=== PATIENT | female | born 1995 | race Caucasian/White ===

== ENCOUNTER 2018-01-15 10:30 | Emergency (ER) | payer OTHER, SELFPAY ==
[2018-01-15 10:39] VITALS: BMI 20.9
[2018-01-15 10:40] VITALS: BP 134/76; PULSE 84; RESP 14; O2SAT 100
--- NOTE | 2018-01-15 10:47 | DI.RAD.S_ITS ---
PROCEDURE: XR HIP W PEL IF DONE LT 2V INDICATIONS: 22 year-old female with left hip pain, without known trauma. TECHNIQUE: AP pelvis with lateral view(s) of the left hip(s). COMPARISON: None. FINDINGS: Bones: No fractures or dislocations. Pelvic ring appears intact. No developmental hip dysplasia. No suspicious bony lesions. Soft tissues: The visualized bowel gas pattern is normal. No suspicious soft tissue calcifications. IMPRESSION: No imaging explanation for left hip pain. Dictated by: Lucien Montemayor M.D. on 01/15/2018 at 11:18 Approved by: Lucien Montemayor M.D. on 01/15/2018 at 11:20
--- NOTE | 2018-01-15 11:30 | ED.LOWEXIN ---
HPI - Extremity Injury (Lower) General Chief Complaint: Extremity Injury, Lower Stated Complaint: DISLOCATED LEFT HIP Time Seen by Provider: 01/15/18 11:30 Source: patient Limitations: no limitations History of Present Illness HPI Narrative: Patient is a 22-year-old female who presents with left hip pain. She denies any injury. He says it is up chronically popping. 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 She has been trying to put heat on it without any relief. She has not taken anything for pain. She feels like it is locking out. She denies any numbness or tingling. No back pain Related Data Allergies Allergy/AdvReac Type Severity Reaction Status Date / Time No Known Drug Allergies Allergy Verified 01/15/18 10:38 Review of Systems Review of Systems All systems reviewed & are unremarkable except as noted in HPI and below Constitutional Denies chills, Denies fever(s), Denies lethargy and Denies weakness Cardiovascular Denies chest pain, Denies irregular heart rhythm, Denies lightheadedness, Denies palpitations, Denies dyspnea, Denies dyspnea on exertion and Denies orthopnea Respiratory Denies cough, Denies dyspnea, Denies dyspnea on exertion and Denies wheezing Gastrointestinal Gastrointestinal: Denies abdominal pain, Denies change in bowel habits, Denies diarrhea, Denies nausea and Denies vomiting Musculoskeletal Reports system reviewed and no additional complaints, except as docu Integumentary/Breasts Denies pruritus, Denies erythema, Denies rash and Denies wounds Neurologic Denies confusion, Denies focal weakness and Denies weakness Psychiatric Denies confusion Endocrine Denies palpitations Allergic/Immunologic Denies wheezing PFSH Social History Smoking Status: Never smoker alcohol intake: never substance use type: does not use Exam Initial Vital Signs Initial Vital Signs: Vital Signs Pulse Rate 84 01/15/18 10:40 Respiratory Rate 14 01/15/18 10:40 Blood Pressure 134/76 H 01/15/18 10:40 Pulse Oximetry 100 01/15/18 10:40 GENERAL: Well-appearing, well-nourished and in no acute distress. HEENT: Head atraumatic,EOMI, pupils reactive CARDIOVASCULAR: Regular rate and rhythm without murmurs, rubs or gallops. RESPIRATORY: Breath sounds equal bilaterally, no wheezes rales or rhonchi. ABDOMEN: Soft, nontender. Normoactive bowel sounds all 4 quadrants. No guarding or rebound. EXTREMITIES: Normal range of motion, no clubbing or edema. Neurovascularly intact -left hip tender to touch no erythema no swelling legs is equaling distal pedal pulse is intact of pain with any movement NEUROLOGICAL: Alert and oriented x4.Normal gait and speech. Cranial nerves II through XII grossly intact. SKIN: Warm, dry, no laceration, no petechiae, no rashes or lesions. Course Orders Ordered: ED Orders 01/15/18 10:47 XR hip w pel if done LT 2V Stat Discontinued Medications Ketorolac Tromethamine (Toradol) 60 mg IM NOW ONE Stop: 01/15/18 11:42 Last Admin: 01/15/18 11:49 Dose: 60 mg Vital Signs - 8 hr 01/15/18 10:40 01/15/18 11:49 Pulse Rate 84 106 H Respiratory Rate 14 14 Blood Pressure [Right Arm] 134/76 H 140/82 H Pulse Oximetry 100 100 [facility] - Extremity Injury (Lower) Differential Diagnosis Likely other (Others considered: Bursitis, Avascular necrosis, osteomyelitis, septic joint) Imaging Data right hip: Radiologist's impression: PROCEDURE: XR HIP W PEL IF DONE LT 2V INDICATIONS: 22 year-old female with left hip pain, without known trauma. TECHNIQUE: AP pelvis with lateral view(s) of the left hip(s). COMPARISON: None. FINDINGS: Bones: No fractures or dislocations. Pelvic ring appears intact. No developmental hip dysplasia. No suspicious bony lesions. Soft tissues: The visualized bowel gas pattern is normal. No suspicious soft tissue calcifications. IMPRESSION: No imaging explanation for left hip pain. Dictated by: Lucien Montemayor M.D. on 01/15/2018 at 11:18 MDM Narrative Medical decision making narrative: The patient is young without any cor morbidities. I do not suspect her avascular necrosis. X-ray is negative. More likely bursitis however we did discuss if pain should worsen or continue she may require an MRI and blood work. Discharge Plan Departure Patient Disposition: Home, Self-Care Clinical Impression: Bursitis Discharge Date/Time: 01/15/18 12:28 Interventions: ED Discharge Assessment Last Done: 01/15/18 12:26 Instructions: Bursitis Activity Restrictions/Additional Instructions: *You have been diagnosed with bursitis *What to do: Recommend icing 20 min at a time, treated with anti-inflammatories. If this is still causing problems in 1-2 weeks or if you are having increasing problems, then may require further evaluation such as MRI and/or blood work. *Continue to take medications as directed *Follow up with your primary care provider in 2-3 days *Return to ER if you should have persistent worsening or ongoing symptoms, fever more than 100.4 or any new, worsening or concerning symptoms
[2018-01-15 11:49] VITALS: BP 140/82; PULSE 106; RESP 14; O2SAT 100
[2018-01-15] MEDS: KETOROLAC 60 MG/2 ML VIAL IM (11:49)
== END 2018-01-15 12:28 | disposition home or self-care (01) ==
PROVIDERS: Emergency Provider Emergency Medicine
DX: M70.72 Other bursitis of hip, left hip (principal)
CPT/HCPCS: 73502; 81025; 96372; 99282; 99284; J1885

== ENCOUNTER 2023-03-27 02:28 | Inpatient (IN) | payer OTHER, SELFPAY ==
--- NOTE | 2023-03-27 03:21 | P.HPOB_ITS ---
OB HPI Date/Time Date of admission: 03/27/23 Date Patient Seen: 03/27/23 Time Patient Seen: 03:00 History of Present Condition Chief complaint: OB : 3 Para: 0 Estimated Date of Delivery: 03/25/23 Estimated Gestational Age (weeks): 40w2d Narrative: Marina Brownlee is a 27 year old female at 40w2d by LMP confirmed by 10 week ultrasound. She has had a normal including normal labs and tested GBS negative. Marina called at 2115 on 03/26/23 to report possible ROM with clear fluid. Contractions had been mild for about 1-2 hours prior to ROM, then quickly ramped up to every 5 minutes by 2230. Called requesting to come to hospital at 0130 because contractions were every 3 min lasting about 90 seconds and quite intense. Still leaking clear fluid and arrived wearing a pad. She is accompanied by her , Addy. They are excited and nervous to meet their baby girl. Marina is hoping for an unmedicated . History of Present care: good care, initiated at week # (10), number of visits (11) and pounds weight gain (40) Ultrasounds: normal 1st trimester US and normal mid trimester US Obstetrical complications: none Medical complications: none Preadmission Labs Blood type: AB (+) positive -: Antibody screen: negative, Cystic fibrosis screen: negative, GBS status: neg ative, HBsAG: negative, HIV: negative, HSV 1: unknown, HSV 2: unknown and RPR/VDLR: negative -: Chlamydia screen: not detected and Gonorrhea screen: not detected -: Rubella: immune and Varicella: immune HCT: 37.4 (27 weeks) HCAB: negative Quad screen: Normal (MsAFP) Cell-free DNA: Negative, XX Urine: No growth 1 hr GTT: 115 Prior (ies) History: SAB x 2, 2018 and 2021 Evaluation Evaluation Baseline heart rate: 145 Variability: Moderate (11-25) monitor accelerations: Present Monitor Decelerations: Absent Contraction Frequency (minutes): 3 Uterine Contraction Intensity: Strong/Firm Status: Category l Dilation (cm): 4 Effacement (%): 95 Dilation: 3-4 cm Effacement: >/=80% station: -1 Position of cervix: mid Consistency: soft Vargas score: 10 Comments: No amniotic sac noted on exam. Rupture confirmed. PFSH Medical History Anxiety Family History Father Hypertension Grandmother Stroke Other Depression Twins, both liveborn Social History do you feel safe at home: Yes Smoking Status: Never smoker alcohol intake: never substance use type: does not use during the past year weight has: remained stable well-balanced diet: daily or most days daily servings fruits/ve or more times/day Comment: Vegetarian diet Meds Home Medications and Allergies Home Medications Medication Instructions Recorded Confirmed Type See Rx Instructions .Route .COMPLEX 03/27/23 03/27/23 History Allergies Allergy/AdvReac Type Severity Reaction Status Date / Time No Known Drug Allergies Allergy Verified 03/27/23 07:29 Review of Systems Review of Systems Narrative: Negative except as noted in HPI OB Exam Vital signs Blood Pressure: 143/84 (repeat 139/88 then 124/66) Pulse Rate: 77 Respiratory Rate: 18 Temperature: 37.2 F Presentation: vertex Estimated Weight (lbs): 8 Amniotic Fluid: clear Objective Labs 03/27/23 03:30 Assessment and Plan Assessment and Plan Assessment and Plan narrative: at 40weeks 2 days by LMP GBS neg Rh positive FHR Cat 1 Admit to L&D Saline lock Admission labs Intermittent monitoring Anticipate NSVB
[2023-03-27 03:43] LABS: Add Manual Diff / Slide Review NO; Basophils Absolute Auto 0 /uL (0-100); Basophils Percent Auto 0.1 % (0-2); Eosinophils Absolute Auto 100 /uL (0-450); Eosinophils Percent Auto 0.4 % (2-4); Hematocrit 36.8 % (36-46); Hemoglobin 12.7 g/dL (12.0-16.0); Lymphocytes Absolute Auto 900 /uL (1100-4500); Lymphocytes Percent Auto 4.5 % (25-40); Mean Corpuscular HGB Conc 34.5 % (30-36); Mean Corpuscular Hemoglobin 28.7 PG (26-34); Mean Corpuscular Volume 83.1 fL (80-100); Monocytes Absolute Auto 800 /uL (0-900); Monocytes Percent Auto 4.2 % (3-14); Neutrophils Absolute Auto 18300 /uL (1500-7000); Neutrophils Percent Auto 90.8 % (50-75); Platelet Count 150 X10^3/uL (150-400); Red Blood Cell Count 4.43 X10^6/uL (4.0-5.2); Red Cell Distribution Width 12.9 % (11.6-14.8); White Blood Cell Count 20.1 X10^3/uL (4.5-11.0)
[2023-03-27 03:44] VITALS: BP 143/84; PULSE 77; RESP 18; TEMP 2.9; TEMP 37.2
[2023-03-27 04:04] VITALS: BP 125/66
[2023-03-27] MEDS: LIDOCAINE 1% 20 ML INJ (11:30)
[2023-03-27] MEDS: METHYLERGONOVINE 0.2 MG/ML VIAL IM (11:40)
[2023-03-27] MEDS: OXYTOCIN PREMIX 30 UNIT/500 ML PLAST..BAG 200 UNIT IV (11:42)
[2023-03-27] MEDS: LACTATED RINGERS 1,000 ML 100 ML IV ×2 (11:46→16:05)
--- NOTE | 2023-03-27 12:43 | PM.OBPRVD ---
Labor & Delivery Delivery date: 03/27/23 Delivery monitor: external FHT (Intermittent Auscultation ) Route of delivery: Episiotomy description: None L&D Laceration Description: Perineal - 2nd Degree Delivery repair: vicryl Quantitative Blood Loss: 516 Anesthesia Type: None Narrative: Marina SROMed at 2115 while in early labor at home, fluid clear. Admitted at 0300; engineer and geologist present for labor support continuously from 0600 until delivery. Labor progressed well and she felt the spontaneous urge to push at 0900 and pushed effectively for an average 2nd stage. FHR was reassuring by IA throughout labor and 2nd stage. NSVB of baby at 1058 with Marina standing at the side of the bed. Shoulders delivered easily and SNM and FOB received the baby and passed her forward through Marina's legs. Terminal meconium noted. Apgars 6/7/9. Baby remained skin to skin Marina with RN and CNM at bedside drying and stimulating baby due to slow color transition and increased work of breathing. 3 vessel cord clamped and cut by FOB at 5 minutes of life after cord pulsing had stopped. Cord blood collected for blood typing. [place] was brought to the warmer at 5 min of life for pulse ox monitoring and increased attention from RNs due to continued increased work of breathing. Placenta delivered spontaneously after 20 minutes with maternal efforts and appeared to be intact. Pitocin bolused and methergine administered x1 during repair for increased bleeding. Perineum inspected and 2nd degree laceration noted and repaired with 3-0 Vicryl after 10 mL 0.1% Lidocaine administered for anesthesia. Shallow periurethral lacerations noted bilaterally. Blood loss measured is 516 mL. Baby in nursery, on-call [place] [employer] [place] sound[employer] group leader Dr. Lozoya to bedside to evaluate , who wsa then taken to nursery for IV, labs, chest x-ray. Mom stable, resting. Marina and Addy are thrilled to meet their baby girl, but worried about her difficulty transitioning. Dinora LYNCH, SALM, IBCLC Baby 1: Infant gender: Female Presentation: vertex Position: Left Occiput Anterior Placenta delivery description: Spontaneous ([place]) Cord Vessel Description: 3 Vessels score (1 min): 6 score (5 min): 7 score (10 min): 9 weight: 4.1 kg Plan for aftercare: Routine care
--- NOTE | 2023-03-27 13:18 | PM.OBDS.1 ---
Discharge Providers Provider Date of admission: 03/27/23 02:28 Discharge Date: 03/27/23 Discharge provider: Dinora Daniels CNM, ARNP Summary Hospital Course Date Patient Seen: 03/27/23 Time Patient Seen: 13:18 Diagnoses: o70.1 Hospital Course: Spontaneous labor and NSVB of baby girl Gloria at 1058 on 03/27/2023. 2nd degree laceration repaired. QBL 516ml. VSS in recovery. Voided within 2 hours of delivery. Hand expressing for in nursery d/t need for respiratory support. Peripartum Data Delivery Method: Natural Vaginal Laceration Description: Perineal - 2nd Degree Episiotomy description: None complications: other (transfer of to NICU) [place] 1: Gender: Female Disposition of : NICU Discharge Diagnosis (1) (normal spontaneous vaginal delivery): Status: Acute (2) Second degree laceration of perineum, delivered, current hospitalization: Status: Acute Status at Discharge Cognitive/behavioral status at discharge: oriented and calm Functional status at discharge: independent ambulation Overall status at discharge: patient is progressing back to baseline Time Spent with Patient Time attestation: Total time spent providing and/or coordinating discharge services: Time spent: Less than 30 minutes Specific discharge activities: discharge teaching Objective Labs 03/27/23 03:30 Labs: Laboratory Results - last 24 hr 03/27/23 03/27/23 03:30 03:30 WBC 20.1 H RBC 4.43 Hgb 12.7 Hct 36.8 MCV 83.1 MCH 28.7 MCHC 34.5 RDW 12.9 Plt Count 150 Neut % (Auto) 90.8 H Lymph % (Auto) 4.5 L [place] % (Auto) 4.2 Eos % (Auto) 0.4 L Baso % (Auto) 0.1 Neut # (Auto) 65675 H Lymph # (Auto) 900 L [place] # (Auto) 800 Eos # (Auto) 100 Baso # (Auto) 0 Blood Type AB Positive Antibody Screen Negative Exam Vital Signs (past 8 hours): BP: 116/63 HR: 64 SP02: 98% T - 36.8C Other: Fundus firm at U, midline. Lochia moderate. Perineum healing with minimal edema Discharge Plan Discharge Plan Patient Disposition: Home Discharge orders & Medications Prescriptions: Continued 1 tablet See Rx Instructions .ROUTE .COMPLEX Protocol: TITRATE PER PROTOCOL Rx Instructions: daily Follow up/Referrals: Dinora Daniels CNM, BORE MINER OPERATOR [Advanced Shuttle Veneering Supervisor] - 2 Weeks (and 6 weeks as scheduled (see e-mail).) Diet/Activity/Treatments Diet: Regular Diet comment: Increase hydration and fiber for soft stools Activity: Rest in/near bed for 2 weeks Cold/Heat Therapy: as needed Skin/Wound/Dressing Care Skin care: usual care Report to your healthcare provider any signs of infection, such as:: chills, fever, increased pain, unusual drainage and unusual redness Visit Report/Discharge Packet Stand Alone Forms: Patient Portal/API
[2023-03-27] MEDS: KETOROLAC 30 MG/ML VIAL IV (14:06)
[2023-03-27 17:32] VITALS: BP 125/66; PULSE 77; RESP 18; TEMP 2.9; TEMP 37.2
== END 2023-03-27 18:45 | disposition home or self-care (01) | DRG 807 ==
PROVIDERS: Admitting Provider Advanced Practice Midwife; Referring Provider Advanced Practice Midwife; Visit Provider Advanced Practice Midwife
DX: O70.1 Second degree perineal laceration during delivery (principal); Z37.0 Single live birth; Z3A.40 40 weeks gestation of pregnancy
CPT/HCPCS: 36415; 59050; 85025; 86850; 86900; 86901; G0379; J1885; J2210; J2590